=== PATIENT | male | born 1975 | race Caucasian/White ===

== ENCOUNTER 2019-04-02 11:58 | Emergency (ER) | payer SELFPAY ==
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
== END 2019-04-02 12:50 | disposition home or self-care (01) ==
LOC: MADERS 11:58
DX: S90.32XA Contusion of left foot, initial encounter (principal); W20.8XXA Other cause of strike by thrown, projected or falling object, initial encounter

== ENCOUNTER 2025-08-16 22:38 | Emergency (ER) | payer OTHER, SELFPAY ==
[2025-08-16] MEDS ORDERED: Ketorolac Tromethamine 30 MG (1 mL) VIAL ONE (23:06)
[2025-08-16 23:08] LABS: Hematocrit 57.7 % (42.0-52.0); Hemoglobin 17.9 g/dL (14.0-18.0); Mean Corpuscular Hemoglobin 26.2 pg (27.0-31.0); Mean Corpuscular Volume 84.5 fl (78.0-98.0); Platelet Count 304 10x3/uL (130-400); Red Blood Cell (RBC) Count 6.83 mill/uL (4.70-6.10); White Blood Cell (WBC) Count 10.3 10x3/uL (4.8-10.8)
[2025-08-16 23:09] LABS: #Basophils 0.1 thou/uL (0.0-0.2); #Eosinophils 0.2 thou/uL (0.0-0.7); #Lymphocytes 2.5 thou/uL (1.20-3.40); #Monocytes 0.7 thou/uL (0.11-0.59); #Neutrophils 6.7 thou/uL (1.40-6.50); %Basophils 1.3 % (0.0-1.0); %Eosinophils 2.2 % (0.0-10.0); %Lymphocytes 24.4 % (21.0-51.0); %Monocytes 7.1 % (0.0-10.0); %Neutrophils 65.0 % (42.0-75.0)
[2025-08-16 23:18] LABS: Glucose, Urine (Dipstick) Negative (Negative); Leukocyte Negative (Negative); Protein, Urine (Dipstick) Negative (Neg-Trace); Specific Gravity, Urine Greater/Equal 1.030 (1.005-1.030)
[2025-08-16 23:19] LABS: CAUTI Indications for Culture Pelvic or flank pain; RBC/HPF 21-50 HPF (0-3); Urine Culture Reflex No No; WBC/HPF 0-3 HPF (0-3)
[2025-08-16 23:25] LABS: ALT (SGPT) 47 U/L (Less than 45); AST (SGOT) 25 U/L (11-34); Albumin 4.1 g/dL (3.1-4.5); Alkaline Phosphatase 59 U/L (40-110); Anion Gap 16 mmol/L (10-20); BUN (Urea Nitrogen) 14 mg/dL (8.9-20.6); Bilirubin, Total 0.4 mg/dL (0.3-1.2); Calc. Creatinine Clearance 0 mL/min (70-130); Calcium 9.0 mg/dL (7.8-10.44); Carbon Dioxide 22 mmol/L (22-29); Chloride 105 mmol/L (98-107); Globulin 3.2 g/dL (2.4-3.5); Glucose 122 mg/dL (70-105); Lipase 42 U/L (8-78); Potassium 3.9 mmol/L (3.5-5.1); Sodium 139 mmol/L (136-145)
== END 2025-08-17 00:04 | disposition home or self-care (01) ==
LOC: MADERS 22:38
DX: N13.2 Hydronephrosis with renal and ureteral calculous obstruction (principal)
CPT/HCPCS: 74176; 80053; 81001; 83690; 85025; 96374; J1885